=== PATIENT | female | born 1965 | race Caucasian/White ===

== ENCOUNTER 2021-09-10 14:16 | Inpatient (IN) | payer OTHER ==
[~2021-09-10] VITALS: Ht 162.6 cm; Wt 86.2 kg
[2021-09-10 14:17] VITALS: BP 142/69
[2021-09-10 14:20] VITALS: BP 142/69
--- NOTE | 2021-09-10 14:25 | NUR ---
ARRIVAL PATIENT ARRIVED TO ED6 VIA GURNEY BY [facility], C/O LEFT LEG PAIN AND REDNESS FOR THE PAST 2 DAYS, DOES HAVE A HISTORY OF DVT'S AND IS ON ELIQUIS, CALLED EMS TO BRING TO THE ED FOR EVAL, VITAL SIGNS OBTAINED AND DOCTOR EMRE TO THE ROOM TO SEE PATIENT.
--- NOTE | 2021-09-10 14:32 | ER.PDOC ---
General Chief Complaint: Extremities Stated Complaint: LEG PAIN Time seen by MD: 14:31 Source: patient Exam Limitations: no limitations History of Present Illness Initial Comments Left leg pain and swelling today. No fever or chills. Onset: this morning Severity: moderate Exacerbated By: walking movement Relieved By: nothing Allergies: Coded Allergies: No Known Allergies (Unverified , 10/14/14) Past Medical History Medical History: diabetes, hypertension Surgical History: appendectomy, coronary bypass surgery, knee, other Family History Significant Family History: no pertinent family hx Social History Smoking: non-smoker Alcohol Use: none Drug Use: none Review of Systems Constitutional: no symptoms reported EENTM: no symptoms reported Respiratory: no symptoms reported Cardiovascular: no symptoms reported Musculoskeletal: see HPI All Other Systems: Reviewed and Negative Physical Exam General Appearance: Alert, No Apparent Distress Lower Extremity: tenderness (left leg), swelling (left leg) Joint Exam: joints nml, nml ROM, nml gait/weight bearing Vascular: no vascular compromise, pulses full/equal Neuro/Psych: sensation nml, motor nml, oriented x3, CN's nml as tested, mood/a ffect nml Skin: warmth/erythema (left leg) Back/Neck: nml inspection EENT: eyes inspection nml, ENT inspection nml, pharynx nml Respiratory: no resp distress, breath sounds nml CVS: reg rate & rhythm, heart sounds nml Abdomen: non-tender, no organomegaly, no bruit/mass Results/Orders Results/Orders Orders - LA NENA ANDREA MD Cbc With Auto Diff (09/10/21 14:28) Comprehensive Metabolic Panel (09/10/21 14:28) PT (09/10/21 14:28) Partial Thromboplastin Time. (09/10/21 14:28) Blood Culture (09/10/21 14:28) Lactic Acid(Ml) (09/10/21 14:28) Procalcitonin (09/10/21 14:28) D-Dimer (09/10/21 14:28) Covid19 Antigen Linsey Agnieszka (09/10/21 14:38) Us Lt Vein U/L (09/10/21 14:28) Vital Signs Date Time Temp Pulse Resp B/P (MAP) Pulse Ox O2 Delivery O2 Flow Rate FiO2 09/10/21 16:16 98.7 77 18 169/65 (99) 91 Room Air 09/10/21 14:20 98.7 84 18 142/69 (93) 91 Room Air 09/10/21 14:17 98.7 84 18 91 09/10/21 14:17 98.7 84 18 09/10/21 14:17 98.7 84 18 142/69 (93) 91 Room Air Laboratory Tests Test 09/10/21 14:36 White Blood Count 11.9 10^3/uL (4.5-11.0) H Red Blood Count 3.42 10^6/uL (4.00-5.20) L Hemoglobin 9.8 g/dL (12.0-15.0) L Hematocrit 31.2 % (36.0-46.0) L Mean Corpuscular Volume 91.2 fL (78-100) Mean Corpuscular Hemoglobin 28.7 pg (26-34) Mean Corpuscular Hemoglobin Concent 31.4 g/dL (33-36.5) L Red Cell Distribution Width 13.5 % (11.5-14.5) Platelet Count 285 10^3/uL (150-400) Mean Platelet Volume 9.7 fL (7.8-11.0) Neutrophils (%) (Auto) 79.3 % (41.0-85.0) Lymphocytes (%) (Auto) 11.3 % (24.0-44.0) L Monocytes (%) (Auto) 8.6 % (5.0-12.0) Neutrophils # (Auto) 9.4 10^3/uL (1.8-7.7) H Lymphocytes # (Auto) 1.34 10^3/uL1 (1.0-4.8) Monocytes # (Auto) 1.0 10^3/uL (0.3-0.8) H Absolute Immature Granulocyte (auto 0.02 10^3 u/L (0-2) Absolute Eosinophils (auto) 0.0 10^3/uL (0.0-0.2) Immature Granulocytes % 0.20 % (0.00-0.50) Eosinophils % 0.3 % (0.0-5.0) Basophils % 0.3 % (0.0-0.2) H Basophils # 0.0 10^3/uL (0.0-0.1) Prothrombin Time 10.8 SEC (9.6-12.0) Prothrombin Time INR (Non-Therap) 1.0 Activated Partial Thromboplast Time 27.1 SEC (24.67-30.72) D-Dimer 1.43 mg/L (0.19-0.49) *H Sodium Level 134 mmol/L (132-145) Potassium Level 3.9 mmol/L (3.6-5.2) Chloride Level 98.0 mmol/L (96-109) Carbon Dioxide Level 27.4 mmol/L (20.0-32) Anion Gap 12.5 Blood Urea Nitrogen 38 mg/dL (7-18) H Creatinine 1.55 mg/dL (0.59-1.40) H Estimated GFR () 41.6 (>/=60) Est GFR (CKD-EPI)(Non-Afr Mexican) 34.3 (>/=60) BUN/Creatinine Ratio 24.0 Glucose Level 200 mg/dL (70-110) H Lactic Acid Level 1.6 mmol/L (0.5-1.9) Calcium Level 8.9 mg/dL (8.4-10.5) Total Bilirubin 0.4 mg/dL (0.2-1.0) Aspartate Amino Transferase (AST) 58 U/L (0-35) H Alanine Aminotransferase (ALT) 22 U/L (12-78) Alkaline Phosphatase 48 U/L (50-136) L Total Protein 7.7 g/dL (6.4-8.2) Albumin 2.9 g/dL (3.4-5.0) L Globulin 4.8 Albumin/Globulin Ratio 0.604 Procalcitonin 5.61 ng/mL (0.05-0.5) *H SARS-CoV-2 Antigen (Rapid) NEGATIVE (NEGATIVE) EKG/XRAY/CT/US Utrasound Comments: No DVT of LLE ER DEPART Departure Time of Disposition: 16:20 Disposition: 09 ADMITTED INPATIENT Impression: Primary Impression: Cellulitis of leg, left Condition: Stable Comments Admitted to Dr. Estevez Duration or Time Spent with Pa: 45 min LA NENA ANDREA MD Sep 10, 2021 14:32
--- NOTE | 2021-09-10 14:39 | NUR ---
ULTRASOUND BECK NOTIFIED AT THIS TIME.
[2021-09-10 14:45] LABS: BASOPHIL % 0.3 % (0.0-0.2); EOSINOPHIL % 0.3 % (0.0-5.0); LYMPHOCYTES # 1.34 10^3/uL1 (1.0-4.8); LYMPHOCYTES % 11.3 % (24.0-44.0); MEAN CORP HGB 28.7 pg (26-34); MONOCYTES % 8.6 % (5.0-12.0); NEUTROPHIL # 9.4 10^3/uL (1.8-7.7); NEUTROPHILS % 79.3 % (41.0-85.0); PLATELET COUNT 285 10^3/uL (150-400); RED CELL DISTRIBUTION WIDTH 13.5 % (11.5-14.5)
[2021-09-10 15:05] LABS: CALCIUM 8.9 mg/dL (8.4-10.5); CARBON DIOXIDE 27.4 mmol/L (20.0-32)
--- NOTE | 2021-09-10 15:14 | NUR ---
CRITICAL LAB D-DIMER 1.43, DOCTOR EMRE NOTIFIED.
--- NOTE | 2021-09-10 15:29 | DIREP ---
PROCEDURE:US DUPLEX EXTREM VEINS UNILATER/LIMITED-LT COMPARISON:None. INDICATIONS:pain TECHNIQUE:The left lower extremity was evaluated utilizing casillas scale images with segmental compression, color Doppler, and spectral Doppler with respiratory variation and augmentation. FINDINGS: Common femoral vein:Patent Superficial femoral vein:Patent Popliteal vein:Patent Posterior tibial vein:Patent Peroneal vein:Patent Greater saphenous vein:Patent suction femoral junction Waveforms: Within normal limits. CONCLUSION:No evidence of left lower extremity deep vein thrombosis. Dictated by: Carlos Eduardo Serrato M.D. on 09/10/2021 at 03:26 PM
--- NOTE | 2021-09-10 16:03 | NUR ---
DAMEON DOCTOR EMRE SPOKE WITH DOCTOR XIAO, WANTS PATIENT ADMITTED FOR OBSERVATION BY THE HOSPITALIST.
--- NOTE | 2021-09-10 16:12 | NUR ---
WADE DOCTOR EMRE ON THE PHONE WITH DOCTOR OLVERA AT THIS TIME DISCUSSING ADMISSION
[2021-09-10 16:16] VITALS: BP 169/65
[2021-09-10] MEDS ORDERED: ZOSYN 3.375 GM 3.375 GM in NS 100ML 100 ML IV STA (16:21)
[2021-09-10] MEDS ORDERED: VANCOMYCIN HCL 1 GM in NS 250ML 250 ML IV STA (16:21)
--- NOTE | 2021-09-10 16:30 | NUR ---
CRITICAL LAB PROCALCITONIN 5.61, DOCTOR EMRE NOTIFIED.
[2021-09-10] MEDS ORDERED: NS 100ML 100 ML IV ONE (16:31)
[2021-09-10] MEDS ORDERED: SITA100T PO (16:38)
[2021-09-10] MEDS ORDERED: CETI10TA18 PO (16:38)
[2021-09-10] MEDS ORDERED: LISI1TAB39 PO (16:38)
[2021-09-10] MEDS ORDERED: ROSU40TA PO (16:38)
[2021-09-10] MEDS ORDERED: APIX5TAB PO (16:38)
[2021-09-10] MEDS ORDERED: METF500T17 PO (16:38)
[2021-09-10] MEDS ORDERED: TRAZ-163 PO (16:38)
[2021-09-10] MEDS ORDERED: POTA10CA PO (16:38)
[2021-09-10] MEDS ORDERED: FAMO20TA5 PO (16:38)
[2021-09-10] MEDS ORDERED: FURO40TA4 PO (16:38)
[2021-09-10] MEDS ORDERED: LAMO25TA9 PO (16:38)
[2021-09-10] MEDS ORDERED: SERT50TA PO (16:38)
[2021-09-10] MEDS ORDERED: INSU100I13 SQ (16:41)
[2021-09-10] MEDS ORDERED: INSU100V SQ (16:41)
--- NOTE | 2021-09-10 17:08 | NUR ---
ARRIVAL PATIENT ARRIVED TO MED-SURG UNIT AT THIS TIME TO ROOM #340. RECEIVED REPORT, ASSUMED CARE FOR PATIENT AT THIS TIME.
[2021-09-10] MEDS ORDERED: VANCOMYCIN HCL 1 GM ONE (17:46)
[2021-09-10] MEDS ORDERED: NS 250ML 250 ML ONE ×2 (17:46→21:06)
--- NOTE | 2021-09-10 19:44 | PCM.HP ---
History of Present Illness Reason for Visit: (1) Cellulitis of leg, left ICD Code: L03.116 - Cellulitis of left lower limb SNOMED: [id number] Hx of Present Illness This is a 56-year-old female with a past medical history of hypertension, insulin-dependent diabetes, depression, HLD, DVT in left leg, CAD who presented to the emergency room today with swelling and redness of left lower extremity. She reported the symptoms started 48 hours ago. Symptoms associated with warmth. She did report that her cat at home scratched her around the same time of onset of symptoms but that the cat scratch was in the thigh area not in the calf. She does have a history of a filter in that leg after having a blood clot in that leg in several years ago. She denied any chest pain or shortness of breath. She had a negative ultrasound of that leg with no DVT noted. Her WBC was slightly elevated at 11.9. Her D-dimer was elevated at 1.43. Her pro-Thaddeus was elevated at 5.61. Creatinine slightly elevated at 1.55. SARS-CoV Ag negative. The emergency room physician requested to admit the patient for IV antibiotics for cellulitis. She was started on Vanco and Zosyn. Review of Systems Constitutional: No: Fever, Chills Eyes: No: Vision change, Conjunctivae inflammation ENT: No: Ear pain, Nose congestion Respiratory: No: Cough, Shortness of breath, SOB with excertion, Wheezing Cardiovascular: No: Chest Pain, Palpitations Gastrointestinal: No: Nausea, Vomiting, Abdominal Pain, Diarrhea Genitourinary: No Dysuria, No Frequency Skin: Other (redness, warmth, swelling to left calf) Neurological: No: Weakness, Numbness, Confusion Allergies: Coded Allergies: No Known Allergies (Unverified , 10/14/14) Scheduled Apixaban (Eliquis), 5 MG PO BID, (Reported) Cetirizine Hcl (Cetirizine Hcl), 1 TAB PO DAILY, (Reported) Famotidine (Famotidine), 20 MG PO DAILY24, (Reported) Furosemide (Furosemide), 1 TAB PO DAILY, (Reported) Insulin Glargine,Hum.rec.anlog (Lantus Solostar), 18 UNIT SQ BID, (Reported) Insulin Lispro (Humalog), 0 SQ PER SLIDING SCALE, (Reported) Lamotrigine (Lamotrigine), 1 TAB PO DAILY, (Reported) Lisinopril/Hydrochlorothiazide (Lisinopril-Hctz 20-12.5 Mg Tab), 1 TAB PO DAILY, (Reported) Metformin Hcl (Metformin Hcl), 1 TAB PO BID, (Reported) Potassium Chloride (Potassium Chloride), 1 CAP PO DAILY, (Reported) Rosuvastatin 40MG (Crestor 40MG), 1 TAB PO DAILY, (Reported) Sertraline Hcl (Zoloft), 1 TAB PO DAILY, (Reported) Sitagliptin Phosphate (Januvia), 1 TAB PO DAILY, (Reported) Trazodone Hcl (Trazodone Hcl), 1 TAB PO HS, (Reported) VTE VTE Risk Total Score: 1 VTE Risk Score VTE Risk: Score 0-1 = Low Risk (Aggressive mobilization; early ambulation; no VTE prophylaxis required) Score 2: Moderate Risk (Intermittent/Pneumatic Compression Device OR Lovenox/Heparin/Coumadin) Score 3-4: High Risk (Intermittent/Pneumatic Compression Device AND Lovenox/Heparin/Coumadin) Score > or =5: Highest Risk (Intermittent/Pneumatic Compression Device AND Lovenox/Heparin/Coumadin) VTE Treatment Taking Eliquis 5mg PO BID VTE VTE Present on Admission: Yes Currently receiving anticoagul: No VTE Risk Total Score: 1 Exam Vital Signs Vital Signs Date Time Temp Pulse Resp B/P (MAP) Pulse Ox O2 Delivery O2 Flow Rate FiO2 09/10/21 18:16 Room Air 09/10/21 16:16 98.7 77 18 169/65 (99) 91 General Appearance: Alert, Oriented X3, Cooperative, No acute distress HEENT: Atraumatic, PERRLA, EOMI Respiratory: Clear to auscultation, Normal air movement Cardiovascular: Regular rate, No murmurs Abdominal: Normal bowel sounds, Soft, No tenderness Extremities: Other (Mild swelling to left lower calf with mild tenderness.) Skin: Other (warmth and mild redness to left lower calf, no ulcers. ) Neuro: Normal speech (This is a 56-year-old female with a past medical history of hypertension, insulin-dependent diabetes, depression, HLD, DVT in left leg, CAD who presented to the emergency room today with swelling and redness of left lower extremity. She reported the symptoms started 48 hours ago. Symptoms associated with warmth. She did report that her cat at home scratched her around the same time of onset of symptoms but that the cat scratch was in the thigh area not in the calf. She does have a history of a filter in that leg after having a blood clot in that leg in several years ago. She denied any chest pain or shortness of breath.), Sensation intact Psych/Mental Status: Mental status NL, Mood NL Assessment/Plan Assessment/Plan Assessment/Plan Left lower extremity cellulitiscontinue Vanco and Zosyn at this time. If further improved tomorrow we will likely switch over to oral antibiotics. Previous history of DVTfilter in place of left lower extremity and ultrasound was negative for DVT in that extremity. Continue Eliquis. Insulin-dependent diabetescontinue Lantus dose from home of 18 units twice daily and sliding scale. Hypertensioncontinue lisinopril/hydrochlorothiazide. Hyperlipidemiacontinue rosuvastatin. Depressioncontinued Zoloft. Continue home medications at this time. If able to switch IV Vanco and Zosyn to oral medications tomorrow may be able to discharge patient in 24 to 48 hours. Patient History: Cerebrovascular disorder Diabetes mellitus Hypertension No Family History of: Alzheimer's disease Asthma Chronic obstructive pulmonary disease Congestive heart failure Diabetes insipidus Parkinson's disease PRABHJOT OLVERA MD Sep 10, 2021 19:44
[2021-09-10 19:47] VITALS: BP_SYST 125; BP_SYST 150; BP_DIAS 54; BP_DIAS 78
[2021-09-10] MEDS ORDERED: DEXTROSE 50%-WATER SYRINGE IV PRN (20:00)
[2021-09-10] MEDS ORDERED: MORPHINE SULFATE IV PRN (21:00)
[2021-09-10] MEDS: DESYREL PO SCH (21:16)
[2021-09-10] MEDS: PEPCID PO SCH (21:16)
[2021-09-10] MEDS: ELIQUIS PO SCH (21:17)
[2021-09-10] MEDS: LANTUS SQ SCH (21:40)
[2021-09-11 00:18] VITALS: BP 101/47
[2021-09-11] MEDS ORDERED: NS 100ML 100 ML IV ONE (03:58)
[2021-09-11] MEDS: ZOSYN 3.375 GM 3.375 GM in NS 100ML 100 ML IV SCH ×2 (04:00→09:23)
[2021-09-11 04:26] VITALS: BP 138/57
[2021-09-11 05:44] LABS: BASOPHIL % 0.4 % (0.0-0.2); EOSINOPHIL # 0.2 10^3/uL (0.0-0.2); EOSINOPHIL % 1.7 % (0.0-5.0); LYMPHOCYTES # 1.68 10^3/uL1 (1.0-4.8); MEAN CORP HGB 29.3 pg (26-34); MONOCYTES # 1.1 10^3/uL (0.3-0.8); MONOCYTES % 10.1 % (5.0-12.0); NEUTROPHIL # 7.6 10^3/uL (1.8-7.7); NEUTROPHILS % 71.8 % (41.0-85.0); PLATELET COUNT 260 10^3/uL (150-400); RED CELL DISTRIBUTION WIDTH 13.7 % (11.5-14.5)
[2021-09-11 05:49] LABS: CALCIUM 8.5 mg/dL (8.4-10.5); CARBON DIOXIDE 27.6 mmol/L (20.0-32)
[2021-09-11] MEDS: HUMALOG SQ SCH ×3 (08:00→18:12)
[2021-09-11 08:23] VITALS: BP 101/49
[2021-09-11] MEDS: LANTUS SQ SCH ×2 (09:18→21:00)
[2021-09-11] MEDS: CRESTOR PO SCH (09:19)
[2021-09-11] MEDS: CLARITIN PO SCH (09:19)
[2021-09-11] MEDS: ZOLOFT PO SCH (09:20)
[2021-09-11] MEDS: KLOR-CON 10 PO SCH (09:20)
[2021-09-11] MEDS: ZESTRIL PO SCH (09:20)
[2021-09-11] MEDS: LAMICTAL PO SCH (09:20)
[2021-09-11] MEDS: TRADJENTA PO SCH (09:20)
[2021-09-11] MEDS: ELIQUIS PO SCH ×2 (09:20→20:38)
[2021-09-11] MEDS: LASIX PO SCH (09:23)
[2021-09-11] MEDS: HYDROCHLOROTHIAZIDE PO SCH (09:23)
[2021-09-11] MEDS ORDERED: TYLENOL PO PRN (12:00)
[2021-09-11] MEDS: CLEOCIN PO SCH ×3 (13:00→20:39)
[2021-09-11 13:38] VITALS: BP 119/56
[2021-09-11 15:42] VITALS: BP 119/56
--- NOTE | 2021-09-11 19:21 | PRM.PN ---
Subjective Subjective Date: Sep 11, 2021 Time: 11:00 Subjective Pt seen and examined this morning. She had no new complaints. She believes the swelling, pain and warmth in the leg are improved. Afebrile overnight. Patient History: Cerebrovascular disorder Diabetes mellitus Hypertension No Family History of: Alzheimer's disease Asthma Chronic obstructive pulmonary disease Congestive heart failure Diabetes insipidus Parkinson's disease VTE VTE Risk Total Score: 1 VTE Risk Score VTE Risk: Score 0-1 = Low Risk (Aggressive mobilization; early ambulation; no VTE prophylaxis required) Score 2: Moderate Risk (Intermittent/Pneumatic Compression Device OR Lovenox/Heparin/Coumadin) Score 3-4: High Risk (Intermittent/Pneumatic Compression Device AND Lovenox/Heparin/Coumadin) Score > or =5: Highest Risk (Intermittent/Pneumatic Compression Device AND Lovenox/Heparin/Coumadin) Review of Systems Constitutional: No: Fever, Chills Eyes: No: Vision change, Conjunctivae inflammation ENT: No: Ear pain, Nose congestion Respiratory: No: Cough, Shortness of breath, SOB with excertion, Wheezing Cardiovascular: No: Chest Pain, Palpitations Gastrointestinal: No: Nausea, Vomiting, Abdominal Pain, Diarrhea Genitourinary: No Dysuria, No Frequency Skin: Other (redness, warmth, swelling to left calf) Neurological: No: Weakness, Numbness, Confusion Allergies: Coded Allergies: No Known Allergies (Unverified , 10/14/14) Scheduled Apixaban (Eliquis), 5 MG PO BID, (Reported) Cetirizine Hcl (Cetirizine Hcl), 1 TAB PO DAILY, (Reported) Famotidine (Famotidine), 20 MG PO DAILY24, (Reported) Furosemide (Furosemide), 1 TAB PO DAILY, (Reported) Insulin Glargine,Hum.rec.anlog (Lantus Solostar), 18 UNIT SQ BID, (Reported) Insulin Lispro (Humalog), 0 SQ PER SLIDING SCALE, (Reported) Lamotrigine (Lamotrigine), 1 TAB PO DAILY, (Reported) Lisinopril/Hydrochlorothiazide (Lisinopril-Hctz 20-12.5 Mg Tab), 1 TAB PO DAILY, (Reported) Metformin Hcl (Metformin Hcl), 1 TAB PO BID, (Reported) Potassium Chloride (Potassium Chloride), 1 CAP PO DAILY, (Reported) Rosuvastatin 40MG (Crestor 40MG), 1 TAB PO DAILY, (Reported) Sertraline Hcl (Zoloft), 1 TAB PO DAILY, (Reported) Sitagliptin Phosphate (Januvia), 1 TAB PO DAILY, (Reported) Trazodone Hcl (Trazodone Hcl), 1 TAB PO HS, (Reported) Objective Vitals and I/O Vital Sign - Last 24 Hours 09/10/21 09/11/21 09/11/21 09/11/21 19:47 00:18 03:56 04:26 Temp 98.7 98.5 100.7 Pulse 76 81 85 Resp 18 18 18 B/P (MAP) 125/54 (77) 101/47 (65) 138/57 (84) Pulse Ox 98 91 97 O2 Delivery Room Air Room Air Room Air Room Air 09/11/21 09/11/21 09/11/21 09/11/21 08:23 09:20 09:23 09:23 Temp 99.9 Pulse 75 Resp 18 B/P (MAP) 101/49 (66) 101/49 101/49 101/49 Pulse Ox 93 09/11/21 09/11/21 09/11/21 10:00 13:38 15:42 Temp 98.2 98.5 Pulse 63 67 Resp 17 18 B/P (MAP) 119/56 (77) 119/56 (77) Pulse Ox 93 94 O2 Delivery Room Air General: Alert, Oriented X3, Cooperative, No acute distress HEENT: Atraumatic, PERRLA, EOMI Lungs: Clear to auscultation, Normal air movement Heart: Regular rate, No murmurs Abdomen: Normal bowel sounds, Soft, No tenderness Extremities: Other (Mild swelling to left lower calf with mild tenderness but improved from yesterday. Mild erythema to posterior and lower lateral calf. no open wound, no abscess appreciated.) Neuro: Normal speech, Sensation intact Psych/Mental Status: Mental status NL, Mood NL All Results(Lab/Rad) Laboratory Tests Test 09/10/21 20:46 09/11/21 05:17 09/11/21 12:41 09/11/21 16:39 Bedside Glucose 215 204 178 White Blood Count 10.5 10^3/uL Red Blood Count 3.00 10^6/uL Hemoglobin 8.8 g/dL Hematocrit 27.7 % Mean Corpuscular Volume 92.3 fL Mean Corpuscular Hemoglobin 29.3 pg Mean Corpuscular Hemoglobin Concent 31.8 g/dL Red Cell Distribution Width 13.7 % Platelet Count 260 10^3/uL Mean Platelet Volume 9.6 fL Neutrophils (%) (Auto) 71.8 % Lymphocytes (%) (Auto) 16.0 % Monocytes (%) (Auto) 10.1 % Neutrophils # (Auto) 7.6 10^3/uL Lymphocytes # (Auto) 1.68 10^3/uL1 Monocytes # (Auto) 1.1 10^3/uL Absolute Immature Granulocyte (auto 0.01 10^3 u/L Absolute Eosinophils (auto) 0.2 10^3/uL Immature Granulocytes % 0.10 % Eosinophils % 1.7 % Basophils % 0.4 % Basophils # 0.0 10^3/uL Sodium Level 136 mmol/L Potassium Level 4.0 mmol/L Chloride Level 101.0 mmol/L Carbon Dioxide Level 27.6 mmol/L Anion Gap 11.4 Blood Urea Nitrogen 39 mg/dL Creatinine 1.91 mg/dL Estimated GFR () 32.7 Est GFR (CKD-EPI)(Non-Afr Libyan) 27.0 BUN/Creatinine Ratio 20.0 Glucose Level 185 mg/dL Calcium Level 8.5 mg/dL Total Bilirubin 0.3 mg/dL Aspartate Amino Transf (AST/SGOT) 43 U/L Alanine Aminotransferase (ALT/SGPT) 22 U/L Alkaline Phosphatase 54 U/L Total Protein 6.9 g/dL Albumin 2.5 g/dL Globulin 4.4 Albumin/Globulin Ratio 0.568 Current Medications Medications (Trade) Dose Ordered Sig/Orlin Route PRN Reason Start Time Stop Time Status Last Admin Dose Admin Vancomycin HCl 1 gm/Sodium Chloride 250 ml @ 175 mls/hr STAT STAT IV 09/10/21 16:21 09/10/21 17:46 DC 09/10/21 21:00 Piperacillin Sod/ Tazobactam Sod 3.375 gm/Sodium Chloride 100 ml @ 100 mls/hr OT STAT IV 09/10/21 16:21 09/10/21 17:20 DC 09/10/21 16:48 Sodium Chloride 100 ml @ ud STK-MED ONCE IV 09/10/21 16:31 09/10/21 16:32 DC Vancomycin HCl 1 ml @ STK-MED ONCE .ROUTE 09/10/21 17:46 09/10/21 17:46 [facility] 09/10/21 17:46 09/10/21 17:46 DC Loratadine (Claritin) 10 mg DAILY PO 09/11/21 09:00 10/11/21 08:59 09/11/21 09:19 Famotidine (Pepcid) 20 mg DAILY24 PO 09/10/21 20:00 10/10/21 19:59 09/10/21 21:16 Furosemide (Lasix) 40 mg DAILY PO 09/11/21 09:00 10/11/21 08:59 09/11/21 09:23 Lamotrigine (Lamictal) 25 mg DAILY PO 09/11/21 09:00 10/11/21 08:59 09/11/21 09:20 Sertraline HCl (Zoloft) 50 mg DAILY PO 09/11/21 09:00 10/11/21 08:59 09/11/21 09:20 Trazodone HCl (Desyrel) 50 mg HS PO 09/10/21 21:00 10/10/21 20:59 09/10/21 21:16 Insulin Glargine (Lantus) 18 unit BID SQ 09/10/21 21:00 10/10/21 20:59 09/11/21 09:18 Lisinopril (Zestril) 20 mg DAILY PO 09/11/21 09:00 10/11/21 08:59 09/11/21 09:20 Potassium Chloride (Klor-Con 10) 10 meq DAILY PO 09/11/21 09:00 10/11/21 08:59 09/11/21 09:20 Rosuvastatin Calcium (Crestor) 40 mg DAILY PO 09/11/21 09:00 10/11/21 08:59 09/11/21 09:19 Insulin Human Lispro (Humalog) Humalog. Give when food is... TIDM SQ 09/11/21 08:00 10/11/21 07:59 09/11/21 18:12 Dextrose (Dextrose 50%-Water Syringe) 25 ml STAT PRN IV HYPOGLYCEMIA 09/10/21 20:00 10/10/21 19:59 Hydrochlorothiazide (Hydrochlorothiazide) 12.5 mg DAILY PO 09/11/21 09:00 10/11/21 08:59 09/11/21 09:23 Morphine Sulfate (Morphine Sulfate) 2 mg Q4H PRN IV PAIN 4 - 6 09/10/21 21:00 09/11/21 12:00 DC 09/10/21 21:18 Piperacillin Sod/ Tazobactam Sod 3.375 gm/Sodium Chloride 100 ml @ 100 mls/hr Q6H IV 09/11/21 04:00 09/11/21 12:22 DC 09/11/21 09:23 Sodium Chloride 250 ml @ STK-MED ONCE .ROUTE 09/10/21 21:06 09/10/21 21:07 DC Sodium Chloride 100 ml @ STK-MED ONCE IV 09/11/21 03:58 09/11/21 03:59 DC Clindamycin HCl (Cleocin) 300 mg QID PO 09/11/21 13:00 10/11/21 12:59 09/11/21 17:59 Acetaminophen (Tylenol) 500 mg Q6H PRN PO PAIN 1 - 3 09/11/21 12:00 10/11/21 11:59 Course Sepsis Screening Results: Posi: NEGATIVE Sepsis Qualifier/Stage: NO DEFINITE RISK Duration or Total Time Spent w: 45 min Vitals & review Data Vital Sign - Last 24 Hours 09/10/21 09/11/21 09/11/21 09/11/21 19:47 00:18 03:56 04:26 Temp 98.7 98.5 100.7 Pulse 76 81 85 Resp 18 18 18 B/P (MAP) 125/54 (77) 101/47 (65) 138/57 (84) Pulse Ox 98 91 97 O2 Delivery Room Air Room Air Room Air Room Air 09/11/21 09/11/21 09/11/21 09/11/21 08:23 09:20 09:23 09:23 Temp 99.9 Pulse 75 Resp 18 B/P (MAP) 101/49 (66) 101/49 101/49 101/49 Pulse Ox 93 09/11/21 09/11/21 09/11/21 10:00 13:38 15:42 Temp 98.2 98.5 Pulse 63 67 Resp 17 18 B/P (MAP) 119/56 (77) 119/56 (77) Pulse Ox 93 94 O2 Delivery Room Air Laboratory Tests Test 09/10/21 14:36 09/10/21 20:46 09/11/21 05:17 09/11/21 12:41 White Blood Count 11.9 10^3/uL 10.5 10^3/uL Red Blood Count 3.42 10^6/uL 3.00 10^6/uL Hemoglobin 9.8 g/dL 8.8 g/dL Hematocrit 31.2 % 27.7 % Mean Corpuscular Volume 91.2 fL 92.3 fL Mean Corpuscular Hemoglobin 28.7 pg 29.3 pg Mean Corpuscular Hemoglobin Concent 31.4 g/dL 31.8 g/dL Red Cell Distribution Width 13.5 % 13.7 % Platelet Count 285 10^3/uL 260 10^3/uL Mean Platelet Volume 9.7 fL 9.6 fL Neutrophils (%) (Auto) 79.3 % 71.8 % Lymphocytes (%) (Auto) 11.3 % 16.0 % Monocytes (%) (Auto) 8.6 % 10.1 % Neutrophils # (Auto) 9.4 10^3/uL 7.6 10^3/uL Lymphocytes # (Auto) 1.34 10^3/uL1 1.68 10^3/uL1 Monocytes # (Auto) 1.0 10^3/uL 1.1 10^3/uL Absolute Immature Granulocyte (auto 0.02 10^3 u/L 0.01 10^3 u/L Absolute Eosinophils (auto) 0.0 10^3/uL 0.2 10^3/uL Immature Granulocytes % 0.20 % 0.10 % Eosinophils % 0.3 % 1.7 % Basophils % 0.3 % 0.4 % Basophils # 0.0 10^3/uL 0.0 10^3/uL Prothrombin Time 10.8 SEC Prothrombin Time INR (Non-Therap) 1.0 Activated Partial Thromboplast Time 27.1 SEC D-Dimer 1.43 mg/L Sodium Level 134 mmol/L 136 mmol/L Potassium Level 3.9 mmol/L 4.0 mmol/L Chloride Level 98.0 mmol/L 101.0 mmol/L Carbon Dioxide Level 27.4 mmol/L 27.6 mmol/L Anion Gap 12.5 11.4 Blood Urea Nitrogen 38 mg/dL 39 mg/dL Creatinine 1.55 mg/dL 1.91 mg/dL Estimated GFR () 41.6 32.7 Est GFR (CKD-EPI)(Non-Afr Libyan) 34.3 27.0 BUN/Creatinine Ratio 24.0 20.0 Glucose Level 200 mg/dL 185 mg/dL Lactic Acid Level 1.6 mmol/L Calcium Level 8.9 mg/dL 8.5 mg/dL Total Bilirubin 0.4 mg/dL 0.3 mg/dL Aspartate Amino Transf (AST/SGOT) 58 U/L 43 U/L Alanine Aminotransferase (ALT/SGPT) 22 U/L 22 U/L Alkaline Phosphatase 48 U/L 54 U/L Total Protein 7.7 g/dL 6.9 g/dL Albumin 2.9 g/dL 2.5 g/dL Globulin 4.8 4.4 Albumin/Globulin Ratio 0.604 0.568 Procalcitonin 5.61 ng/mL SARS-CoV-2 Antigen (Rapid) NEGATIVE Bedside Glucose 215 204 Test 09/11/21 16:39 Bedside Glucose 178 Current Medications Medications (Trade) Dose Ordered Sig/Orlin PRN Reason Start Time Stop Time Status Last Admin Acetaminophen (Tylenol) 500 mg Q6H PRN PAIN 1 - 3 09/11/21 12:00 10/11/21 11:59 Clindamycin HCl (Cleocin) 300 mg QID 09/11/21 13:00 10/11/21 12:59 09/11/21 17:59 Dextrose (Dextrose 50%-Water Syringe) 25 ml STAT PRN HYPOGLYCEMIA 09/10/21 20:00 10/10/21 19:59 Famotidine (Pepcid) 20 mg DAILY24 09/10/21 20:00 10/10/21 19:59 09/10/21 21:16 Furosemide (Lasix) 40 mg DAILY 09/11/21 09:00 10/11/21 08:59 09/11/21 09:23 Hydrochlorothiazide (Hydrochlorothiazide) 12.5 mg DAILY 09/11/21 09:00 10/11/21 08:59 09/11/21 09:23 Insulin Glargine (Lantus) 18 unit BID 09/10/21 21:00 10/10/21 20:59 09/11/21 09:18 Insulin Human Lispro (Humalog) Humalog. Give when food is... TIDM 09/11/21 08:00 10/11/21 07:59 09/11/21 18:12 Lamotrigine (Lamictal) 25 mg DAILY 09/11/21 09:00 10/11/21 08:59 09/11/21 09:20 Lisinopril (Zestril) 20 mg DAILY 09/11/21 09:00 10/11/21 08:59 09/11/21 09:20 Loratadine (Claritin) 10 mg DAILY 09/11/21 09:00 10/11/21 08:59 09/11/21 09:19 Potassium Chloride (Klor-Con 10) 10 meq DAILY 09/11/21 09:00 10/11/21 08:59 09/11/21 09:20 Rosuvastatin Calcium (Crestor) 40 mg DAILY 09/11/21 09:00 10/11/21 08:59 09/11/21 09:19 Sertraline HCl (Zoloft) 50 mg DAILY 09/11/21 09:00 10/11/21 08:59 09/11/21 09:20 Trazodone HCl (Desyrel) 50 mg HS 09/10/21 21:00 10/10/21 20:59 09/10/21 21:16 LEVEL 1 SEPSIS INFECTION CRITE: None/Not assessed LEVEL 2-SIRS (LIST ALL THAT AP: None/Not assessed Cardiovascular Evidence: Not Assessed or None Hematologic Evidence: None/Not assessed Hepatic Evidence: None/Not assessed Metabolic Evidence: None/Not assessed Neurological Evidence: None/Not assessed Respiratory Evidence: None/Not assessed Renal Evidence: None/Not assessed O2 Sat by Pulse Oximetry: 94 Assessment/Plan Assessment/Plan Assessment/Plan Left lower extremity cellulitis - Received Vanc and Zosyn but have de-escalated to clindamycin at this time and expect cellulitis to further improve. Previous history of DVTf ilter in place of left lower extremity and ultrasound was negative for DVT in that extremity. Continue Eliquis. Insulin-dependent diabetes continue Lantus dose from home of 18 units twice daily and sliding scale. Hypertension continue lisinopril/hydrochlorothiazide. Hyperlipidemia continue rosuvastatin. Depression continued Zoloft. If cellulitis continues to improve after starting PO clindamycin today - likely ready for d/c to home on 09/12/21. PRABHJOT OLVERA MD Sep 11, 2021 19:21
[2021-09-11] MEDS: DESYREL PO SCH (20:38)
[2021-09-11] MEDS: PEPCID PO SCH (20:39)
[2021-09-11 20:42] VITALS: BP 137/64
[2021-09-12 02:13] VITALS: BP 108/71
[2021-09-12 05:00] LABS: BASOPHIL # 0.1 10^3/uL (0.0-0.1); BASOPHIL % 0.5 % (0.0-0.2); EOSINOPHIL # 0.2 10^3/uL (0.0-0.2); EOSINOPHIL % 2.2 % (0.0-5.0); LYMPHOCYTES # 2.18 10^3/uL1 (1.0-4.8); LYMPHOCYTES % 22.9 % (24.0-44.0); MEAN CORP HGB 29.1 pg (26-34); MONOCYTES % 10.5 % (5.0-12.0); NEUTROPHIL # 6.1 10^3/uL (1.8-7.7); NEUTROPHILS % 63.9 % (41.0-85.0); PLATELET COUNT 310 10^3/uL (150-400); RED CELL DISTRIBUTION WIDTH 13.6 % (11.5-14.5)
[2021-09-12 05:14] VITALS: BP 136/67
[2021-09-12 08:15] VITALS: BP 128/56
[2021-09-12] MEDS: HUMALOG SQ SCH ×3 (08:29→17:15)
[2021-09-12] MEDS: LANTUS SQ SCH ×2 (08:30→21:00)
[2021-09-12] MEDS: CLARITIN PO SCH (09:50)
[2021-09-12] MEDS: CRESTOR PO SCH (09:50)
[2021-09-12] MEDS: HYDROCHLOROTHIAZIDE PO SCH (09:50)
[2021-09-12] MEDS: CLEOCIN PO SCH ×4 (09:50→21:04)
[2021-09-12] MEDS: KLOR-CON 10 PO SCH (09:50)
[2021-09-12] MEDS: TRADJENTA PO SCH (09:50)
[2021-09-12] MEDS: LAMICTAL PO SCH (09:50)
[2021-09-12] MEDS: LASIX PO SCH (09:50)
[2021-09-12] MEDS: ZOLOFT PO SCH (09:50)
[2021-09-12] MEDS: ZESTRIL PO SCH (09:50)
[2021-09-12] MEDS: ELIQUIS PO SCH ×2 (09:50→21:04)
--- NOTE | 2021-09-12 12:34 | PRM.PN ---
Subjective Subjective Date: Sep 12, 2021 Time: 09:00 Subjective Patient had a fever this morning, temperature 100.5. Also her creatinine went up to 2.1. Baseline 1.5. Vancomycin and Zosyn were discontinued and patient currently on clindamycin. Otherwise she is feeling okay.Blood cultures negative to date. Patient History: Cerebrovascular disorder Diabetes mellitus Hypertension No Family History of: Alzheimer's disease Asthma Chronic obstructive pulmonary disease Congestive heart failure Diabetes insipidus Parkinson's disease Review of Systems Constitutional: Fever; No: Chills Eyes: No: Vision change, Conjunctivae inflammation ENT: No: Ear pain, Nose congestion Respiratory: No: Cough, Shortness of breath, SOB with excertion, Wheezing Cardiovascular: No: Chest Pain, Palpitations Gastrointestinal: No: Nausea, Vomiting, Abdominal Pain, Diarrhea Genitourinary: No Dysuria, No Frequency Musculoskeletal: foot pain Skin: Other (redness, warmth, swelling to left calf) Neurological: No: Weakness, Numbness, Confusion Allergies: Coded Allergies: No Known Allergies (Unverified , 10/14/14) Scheduled Apixaban (Eliquis), 5 MG PO BID, (Reported) Cetirizine Hcl (Cetirizine Hcl), 1 TAB PO DAILY, (Reported) Famotidine (Famotidine), 20 MG PO DAILY24, (Reported) Furosemide (Furosemide), 1 TAB PO DAILY, (Reported) Insulin Glargine,Hum.rec.anlog (Lantus Solostar), 18 UNIT SQ BID, (Reported) Insulin Lispro (Humalog), 0 SQ PER SLIDING SCALE, (Reported) Lamotrigine (Lamotrigine), 1 TAB PO DAILY, (Reported) Lisinopril/Hydrochlorothiazide (Lisinopril-Hctz 20-12.5 Mg Tab), 1 TAB PO DAILY, (Reported) Metformin Hcl (Metformin Hcl), 1 TAB PO BID, (Reported) Potassium Chloride (Potassium Chloride), 1 CAP PO DAILY, (Reported) Rosuvastatin 40MG (Crestor 40MG), 1 TAB PO DAILY, (Reported) Sertraline Hcl (Zoloft), 1 TAB PO DAILY, (Reported) Sitagliptin Phosphate (Januvia), 1 TAB PO DAILY, (Reported) Trazodone Hcl (Trazodone Hcl), 1 TAB PO HS, (Reported) Objective Vitals and I/O Vital Sign - Last 24 Hours 09/11/21 09/11/21 09/11/21 09/12/21 13:38 15:42 20:42 02:13 Temp 98.2 98.5 98.2 98.5 Pulse 63 67 84 83 Resp 17 18 19 17 B/P (MAP) 119/56 (77) 119/56 (77) 137/64 (88) 108/71 (83) Pulse Ox 93 94 96 93 O2 Delivery Room Air Room Air 09/12/21 09/12/21 09/12/21 09/12/21 02:40 05:14 06:58 09:50 Temp 100.5 Pulse 88 Resp 18 B/P (MAP) 136/67 (90) 128/56 Pulse Ox 96 O2 Delivery Room Air Room Air Room Air 09/12/21 09/12/21 09:50 09:50 B/P (MAP) 128/56 128/56 Intake and Output 09/12/21 07:00 Intake Total 638 ml Balance 638 ml General: Alert, Oriented X3, Cooperative, No acute distress HEENT: Atraumatic, PERRLA, EOMI Lungs: Clear to auscultation, Normal air movement Heart: Regular rate, No murmurs Abdomen: Normal bowel sounds, Soft, No tenderness Extremities: Other (Erythema swelling left leg. Mild erythema to posterior and lower lateral calf. no open wound, no abscess appreciated.) Skin: Other (Redness left leg) Neuro: Normal speech, Sensation intact Psych/Mental Status: Mental status NL, Mood NL All Results(Lab/Rad) Laboratory Tests Test 09/10/21 20:46 09/11/21 05:17 09/11/21 12:41 09/11/21 16:39 Bedside Glucose 215 204 178 White Blood Count 10.5 10^3/uL Red Blood Count 3.00 10^6/uL Hemoglobin 8.8 g/dL Hematocrit 27.7 % Mean Corpuscular Volume 92.3 fL Mean Corpuscular Hemoglobin 29.3 pg Mean Corpuscular Hemoglobin Concent 31.8 g/dL Red Cell Distribution Width 13.7 % Platelet Count 260 10^3/uL Mean Platelet Volume 9.6 fL Neutrophils (%) (Auto) 71.8 % Lymphocytes (%) (Auto) 16.0 % Monocytes (%) (Auto) 10.1 % Neutrophils # (Auto) 7.6 10^3/uL Lymphocytes # (Auto) 1.68 10^3/uL1 Monocytes # (Auto) 1.1 10^3/uL Absolute Immature Granulocyte (auto 0.01 10^3 u/L Absolute Eosinophils (auto) 0.2 10^3/uL Immature Granulocytes % 0.10 % Eosinophils % 1.7 % Basophils % 0.4 % Basophils # 0.0 10^3/uL Sodium Level 136 mmol/L Potassium Level 4.0 mmol/L Chloride Level 101.0 mmol/L Carbon Dioxide Level 27.6 mmol/L Anion Gap 11.4 Blood Urea Nitrogen 39 mg/dL Creatinine 1.91 mg/dL Estimated GFR () 32.7 Est GFR (CKD-EPI)(Non-Afr [place]ian) 27.0 BUN/Creatinine Ratio 20.0 Glucose Level 185 mg/dL Calcium Level 8.5 mg/dL Total Bilirubin 0.3 mg/dL Aspartate Amino Transf (AST/SGOT) 43 U/L Alanine Aminotransferase (ALT/SGPT) 22 U/L Alkaline Phosphatase 54 U/L Total Protein 6.9 g/dL Albumin 2.5 g/dL Globulin 4.4 Albumin/Globulin Ratio 0.568 Current Medications Medications (Trade) Dose Ordered Sig/Orlin Route PRN Reason Start Time Stop Time Status Last Admin Dose Admin Vancomycin HCl 1 gm/Sodium Chloride 250 ml @ 175 mls/hr STAT STAT IV 09/10/21 16:21 09/10/21 17:46 DC 09/10/21 21:00 Piperacillin Sod/ Tazobactam Sod 3.375 gm/Sodium Chloride 100 ml @ 100 mls/hr OT STAT IV 09/10/21 16:21 09/10/21 17:20 DC 09/10/21 16:48 Sodium Chloride 100 ml @ ud STK-MED ONCE IV 09/10/21 16:31 09/10/21 16:32 DC Vancomycin HCl 1 ml @ ud STK-MED ONCE .ROUTE 09/10/21 17:46 09/10/21 17:46 DC Sodium Chloride 250 ml @ ud STK-MED ONCE .ROUTE 09/10/21 17:46 09/10/21 17:46 DC Loratadine (Claritin) 10 mg DAILY PO 09/11/21 09:00 10/11/21 08:59 09/11/21 09:19 Famotidine (Pepcid) 20 mg DAILY24 PO 09/10/21 20:00 10/10/21 19:59 09/10/21 21:16 Furosemide (Lasix) 40 mg DAILY PO 09/11/21 09:00 10/11/21 08:59 09/11/21 09:23 Lamotrigine (Lamictal) 25 mg DAILY PO 09/11/21 09:00 10/11/21 08:59 09/11/21 09:20 Sertraline HCl (Zoloft) 50 mg DAILY PO 09/11/21 09:00 10/11/21 08:59 09/11/21 09:20 Trazodone HCl (Desyrel) 50 mg HS PO 09/10/21 21:00 10/10/21 20:59 09/10/21 21:16 Insulin Glargine (Lantus) 18 unit BID SQ 09/10/21 21:00 10/10/21 20:59 09/11/21 09:18 Lisinopril (Zestril) 20 mg DAILY PO 09/11/21 09:00 10/11/21 08:59 09/11/21 09:20 Potassium Chloride (Klor-Con 10) 10 meq DAILY PO 09/11/21 09:00 10/11/21 08:59 09/11/21 09:20 Rosuvastatin Calcium (Crestor) 40 mg DAILY PO 09/11/21 09:00 10/11/21 08:59 09/11/21 09:19 Insulin Human Lispro (Humalog) Humalog. Give when food is... TIDM SQ 09/11/21 08:00 10/11/21 07:59 09/11/21 18:12 Dextrose (Dextrose 50%-Water Syringe) 25 ml STAT PRN IV HYPOGLYCEMIA 09/10/21 20:00 10/10/21 19:59 Hydrochlorothiazide (Hydrochlorothiazide) 12.5 mg DAILY PO 09/11/21 09:00 10/11/21 08:59 09/11/21 09:23 Morphine Sulfate (Morphine Sulfate) 2 mg Q4H PRN IV PAIN 4 - 6 09/10/21 21:00 09/11/21 12:00 DC 09/10/21 21:18 Piperacillin Sod/ Tazobactam Sod 3.375 gm/Sodium Chloride 100 ml @ 100 mls/hr Q6H IV 09/11/21 04:00 09/11/21 12:22 DC 09/11/21 09:23 Sodium Chloride 250 ml @ ud STK-MED ONCE .ROUTE 09/10/21 21:06 09/10/21 21:07 DC Sodium Chloride 100 ml @ ud STK-MED ONCE IV 09/11/21 03:58 09/11/21 03:59 DC Clindamycin HCl (Cleocin) 300 mg QID PO 09/11/21 13:00 10/11/21 12:59 09/11/21 17:59 Acetaminophen (Tylenol) 500 mg Q6H PRN PO PAIN 1 - 3 09/11/21 12:00 10/11/21 11:59 Assessment/Plan Assessment/Plan Assessment/Plan Left lower extremity cellulitis - Received Vanc and Zosyn but have de-escalated to clindamycin at this time , Will continue to monitor and clindamycin for now, if patient spiked fever again will place the patient back on vancomycin and cefepime. Acute kidney injury, creatinine went up to one 2.1, vancomycin and Zosyn were discontinued. I will hold hydrochlorothiazide, Lasix and lisinopril today, we will keep the patient to continue to monitor kidney function and urine output. Previous history of DVTf ilter in place of left lower extremity and ultrasound was negative for DVT in that extremity. Continue Eliquis. Insulin-dependent diabetes continue Lantus dose from home of 18 units twice daily and sliding scale. Hypertension continue lisinopril/hydrochlorothiazide. Hyperlipidemia continue rosuvastatin. Depression continued Zoloft. Patient will be kept in the hospital today, because of acute kidney injury which the patient developed, also because of the fever. Plan to discharge the patient if the patient remains afebrile for 24 hours and if her kidney function improves, I am holding lisinopril, Lasix and hydrochlorothiazide today.. SHUBHAM MAHER MD Sep 12, 2021 12:34
[2021-09-12 17:11] VITALS: BP 121/64
[2021-09-12 20:36] VITALS: BP 140/63
[2021-09-12] MEDS: DESYREL PO SCH (21:04)
[2021-09-12] MEDS: PEPCID PO SCH (21:06)
[2021-09-13 00:27] VITALS: BP 99/46
[2021-09-13 04:39] VITALS: BP 92/47
[2021-09-13 04:53] LABS: BASOPHIL # 0.1 10^3/uL (0.0-0.1); BASOPHIL % 0.9 % (0.0-0.2); EOSINOPHIL # 0.3 10^3/uL (0.0-0.2); EOSINOPHIL % 3.2 % (0.0-5.0); LYMPHOCYTES # 2.41 10^3/uL1 (1.0-4.8); LYMPHOCYTES % 26.5 % (24.0-44.0); MEAN CORP HGB 29.3 pg (26-34); MONOCYTES # 0.8 10^3/uL (0.3-0.8); MONOCYTES % 8.9 % (5.0-12.0); NEUTROPHIL # 5.5 10^3/uL (1.8-7.7); NEUTROPHILS % 60.5 % (41.0-85.0); PLATELET COUNT 314 10^3/uL (150-400); RED CELL DISTRIBUTION WIDTH 13.2 % (11.5-14.5)
[2021-09-13 05:07] LABS: CALCIUM 8.6 mg/dL (8.4-10.5); CARBON DIOXIDE 29.5 mmol/L (20.0-32)
[2021-09-13 08:00] VITALS: BP 100/60
[2021-09-13] MEDS: HUMALOG SQ SCH ×3 (08:02→17:32)
[2021-09-13] MEDS: LANTUS SQ SCH ×2 (08:50→21:15)
[2021-09-13] MEDS: CRESTOR PO SCH (08:58)
[2021-09-13] MEDS: CLARITIN PO SCH (08:58)
[2021-09-13] MEDS: LAMICTAL PO SCH (08:58)
[2021-09-13] MEDS: CLEOCIN PO SCH ×4 (08:58→21:07)
[2021-09-13] MEDS: ELIQUIS PO SCH ×2 (08:59→21:07)
[2021-09-13] MEDS: TRADJENTA PO SCH (08:59)
[2021-09-13] MEDS: KLOR-CON 10 PO SCH (08:59)
[2021-09-13] MEDS: ZOLOFT PO SCH (09:00)
[2021-09-13 12:30] VITALS: BP 100/58
--- NOTE | 2021-09-13 12:34 | PRM.PN ---
Subjective Subjective Date: Sep 13, 2021 Time: 09:00 Subjective Blood pressure is on the low side with a MAP of 62. In spite of stopping blood pressure medications yesterday. Creatinine went down to 1.8. Left leg still erythematous and swollen but overall looks better. Currently patient is IV clindamycin.Blood cultures remain negative. Patient History: Cerebrovascular disorder Diabetes mellitus Hypertension No Family History of: Alzheimer's disease Asthma Chronic obstructive pulmonary disease Congestive heart failure Diabetes insipidus Parkinson's disease Review of Systems Constitutional: Fever; No: Chills Eyes: No: Vision change, Conjunctivae inflammation ENT: No: Ear pain, Nose congestion Respiratory: No: Cough, Shortness of breath, SOB with excertion, Wheezing Cardiovascular: No: Chest Pain, Palpitations Gastrointestinal: No: Nausea, Vomiting, Abdominal Pain, Diarrhea Genitourinary: No Dysuria, No Frequency Musculoskeletal: foot pain Skin: Other (redness, warmth, swelling to left calf) Neurological: No: Weakness, Numbness, Confusion Allergies: Coded Allergies: No Known Allergies (Unverified , 10/14/14) Scheduled Apixaban (Eliquis), 5 MG PO BID, (Reported) Cetirizine Hcl (Cetirizine Hcl), 1 TAB PO DAILY, (Reported) Famotidine (Famotidine), 20 MG PO DAILY24, (Reported) Furosemide (Furosemide), 1 TAB PO DAILY, (Reported) Insulin Glargine,Hum.rec.anlog (Lantus Solostar), 18 UNIT SQ BID, (Reported) Insulin Lispro (Humalog), 0 SQ PER SLIDING SCALE, (Reported) Lamotrigine (Lamotrigine), 1 TAB PO DAILY, (Reported) Lisinopril/Hydrochlorothiazide (Lisinopril-Hctz 20-12.5 Mg Tab), 1 TAB PO DAILY, (Reported) Metformin Hcl (Metformin Hcl), 1 TAB PO BID, (Reported) Potassium Chloride (Potassium Chloride), 1 CAP PO DAILY, (Reported) Rosuvastatin 40MG (Crestor 40MG), 1 TAB PO DAILY, (Reported) Sertraline Hcl (Zoloft), 1 TAB PO DAILY, (Reported) Sitagliptin Phosphate (Januvia), 1 TAB PO DAILY, (Reported) Trazodone Hcl (Trazodone Hcl), 1 TAB PO HS, (Reported) Objective Vitals and I/O Vital Sign - Last 24 Hours 09/12/21 09/12/21 09/13/21 09/13/21 17:11 20:36 00:27 01:04 Temp 98.0 98.6 97.6 Pulse 78 76 72 Resp 16 18 18 B/P (MAP) 121/64 (83) 140/63 (88) 99/46 (63) Pulse Ox 94 95 90 O2 Delivery Room Air Room Air 09/13/21 09/13/21 04:39 07:30 Temp 98.0 98.7 Pulse 72 72 Resp 18 16 B/P (MAP) 92/47 (62) Pulse Ox 92 90 General: Alert, Oriented X3, Cooperative, No acute distress HEENT: Atraumatic, PERRLA, EOMI Lungs: Clear to auscultation, Normal air movement Heart: Regular rate, No murmurs Abdomen: Normal bowel sounds, Soft, No tenderness Extremities: Other (Erythema swelling left leg. Mild erythema to posterior and lower lateral calf. no open wound, no abscess appreciated.) Skin: Other (Redness left leg) Neuro: Normal speech, Sensation intact Psych/Mental Status: Mental status NL, Mood NL All Results(Lab/Rad) Laboratory Tests Test 09/10/21 20:46 09/11/21 05:17 09/11/21 12:41 09/11/21 16:39 Bedside Glucose 215 204 178 White Blood Count 10.5 10^3/uL Red Blood Count 3.00 10^6/uL Hemoglobin 8.8 g/dL Hematocrit 27.7 % Mean Corpuscular Volume 92.3 fL Mean Corpuscular Hemoglobin 29.3 pg Mean Corpuscular Hemoglobin Concent 31.8 g/dL Red Cell Distribution Width 13.7 % Platelet Count 260 10^3/uL Mean Platelet Volume 9.6 fL Neutrophils (%) (Auto) 71.8 % Lymphocytes (%) (Auto) 16.0 % Monocytes (%) (Auto) 10.1 % Neutrophils # (Auto) 7.6 10^3/uL Lymphocytes # (Auto) 1.68 10^3/uL1 Monocytes # (Auto) 1.1 10^3/uL Absolute Immature Granulocyte (auto 0.01 10^3 u/L Absolute Eosinophils (auto) 0.2 10^3/uL Immature Granulocytes % 0.10 % Eosinophils % 1.7 % Basophils % 0.4 % Basophils # 0.0 10^3/uL Sodium Level 136 mmol/L Potassium Level 4.0 mmol/L Chloride Level 101.0 mmol/L Carbon Dioxide Level 27.6 mmol/L Anion Gap 11.4 Blood Urea Nitrogen 39 mg/dL Creatinine 1.91 mg/dL Estimated GFR () 32.7 Est GFR (CKD-EPI)(Non-Afr [place]ian) 27.0 BUN/Creatinine Ratio 20.0 Glucose Level 185 mg/dL Calcium Level 8.5 mg/dL Total Bilirubin 0.3 mg/dL Aspartate Amino Transf (AST/SGOT) 43 U/L Alanine Aminotransferase (ALT/SGPT) 22 U/L Alkaline Phosphatase 54 U/L Total Protein 6.9 g/dL Albumin 2.5 g/dL Globulin 4.4 Albumin/Globulin Ratio 0.568 Current Medications Medications (Trade) Dose Ordered Sig/Orlin Route PRN Reason Start Time Stop Time Status Last Admin Dose Admin Vancomycin HCl 1 gm/Sodium Chloride 250 ml @ 175 mls/hr STAT STAT IV 09/10/21 16:21 09/10/21 17:46 DC 09/10/21 21:00 Piperacillin Sod/ Tazobactam Sod 3.375 gm/Sodium Chloride 100 ml @ 100 mls/hr OT STAT IV 09/10/21 16:21 09/10/21 17:20 DC 09/10/21 16:48 Sodium Chloride 100 ml @ ud STK-MED ONCE IV 09/10/21 16:31 09/10/21 16:32 DC Vancomycin HCl 1 ml @ ud STK-MED ONCE .ROUTE 09/10/21 17:46 09/10/21 17:46 DC Sodium Chloride 250 ml @ STK-MED ONCE .ROUTE 09/10/21 17:46 09/10/21 17:46 DC Loratadine (Claritin) 10 mg DAILY PO 09/11/21 09:00 10/11/21 08:59 09/11/21 09:19 Famotidine (Pepcid) 20 mg DAILY24 PO 09/10/21 20:00 10/10/21 19:59 09/10/21 21:16 Furosemide (Lasix) 40 mg DAILY PO 09/11/21 09:00 10/11/21 08:59 09/11/21 09:23 Lamotrigine (Lamictal) 25 mg DAILY PO 09/11/21 09:00 10/11/21 08:59 09/11/21 09:20 Sertraline HCl (Zoloft) 50 mg DAILY PO 09/11/21 09:00 10/11/21 08:59 09/11/21 09:20 Trazodone HCl (Desyrel) 50 mg HS PO 09/10/21 21:00 10/10/21 20:59 09/10/21 21:16 Insulin Glargine (Lantus) 18 unit BID SQ 09/10/21 21:00 10/10/21 20:59 09/11/21 09:18 Lisinopril (Zestril) 20 mg DAILY PO 09/11/21 09:00 10/11/21 08:59 09/11/21 09:20 Potassium Chloride (Klor-Con 10) 10 meq DAILY PO 09/11/21 09:00 10/11/21 08:59 09/11/21 09:20 Rosuvastatin Calcium (Crestor) 40 mg DAILY PO 09/11/21 09:00 10/11/21 08:59 09/11/21 09:19 Insulin Human Lispro (Humalog) Humalog. Give when food is... TIDM SQ 09/11/21 08:00 10/11/21 07:59 09/11/21 18:12 Dextrose (Dextrose 50%-Water Syringe) 25 ml STAT PRN IV HYPOGLYCEMIA 09/10/21 20:00 10/10/21 19:59 Hydrochlorothiazide (Hydrochlorothiazide) 12.5 mg DAILY PO 09/11/21 09:00 10/11/21 08:59 09/11/21 09:23 Morphine Sulfate (Morphine Sulfate) 2 mg Q4H PRN IV PAIN 4 - 6 09/10/21 21:00 09/11/21 12:00 DC 09/10/21 21:18 Piperacillin Sod/ Tazobactam Sod 3.375 gm/Sodium Chloride 100 ml @ 100 mls/hr Q6H IV 09/11/21 04:00 09/11/21 12:22 DC 09/11/21 09:23 Sodium Chloride 250 ml @ STK-MED ONCE .ROUTE 09/10/21 21:06 09/10/21 21:07 DC Sodium Chloride 100 ml @ ud STK-MED ONCE IV 09/11/21 03:58 09/11/21 03:59 DC Clindamycin HCl (Cleocin) 300 mg QID PO 09/11/21 13:00 10/11/21 12:59 09/11/21 17:59 Acetaminophen (Tylenol) 500 mg Q6H PRN PO PAIN 1 - 3 09/11/21 12:00 10/11/21 11:59 Assessment/Plan Assessment/Plan Assessment/Plan Left lower extremity cellulitis - Received Vanc and Zosyn but have de-escalated to clindamycin at this time , Will continue to monitor and clindamycin for now, if patient spiked fever again will place the patient back on vancomycin and cefepime. Acute kidney injury, creatinine went up to one 2.1, vancomycin and Zosyn were discontinued. I will hold hydrochlorothiazide, Lasix and lisinopril today, we will keep the patient to continue to monitor kidney function and urine output. Previous history of DVTf ilter in place of left lower extremity and ultrasound was negative for DVT in that extremity. Continue Eliquis. Insulin-dependent diabetes continue Lantus dose from home of 18 units twice daily and sliding scale. Hypertension continue lisinopril/hydrochlorothiazide.In spite of holding the lisinopril, hydrochlorothiazide blood pressure is low??. Hyperlipidemia continue rosuvastatin. Depression continued Zoloft. Patient is hypotensive inspite of stopping lisinopril, hydrochlorothiazide, Lasix. Otherwise the patient doing okay but I am concerned that the blood pressure is low. Will keep the patient today and continue to monitor closely. Blood cultures negative to date. Continue IV clindamycin. SHUBHAM MAHER MD Sep 13, 2021 12:34
[2021-09-13 17:30] VITALS: BP 99/56
[2021-09-13] MEDS: PEPCID PO SCH (21:07)
[2021-09-13] MEDS: DESYREL PO SCH (21:07)
[2021-09-13 23:53] VITALS: BP 128/56
[2021-09-14 04:59] LABS: BASOPHIL # 0.1 10^3/uL (0.0-0.1); BASOPHIL % 0.8 % (0.0-0.2); EOSINOPHIL # 0.2 10^3/uL (0.0-0.2); EOSINOPHIL % 2.4 % (0.0-5.0); LYMPHOCYTES # 2.72 10^3/uL1 (1.0-4.8); LYMPHOCYTES % 27.3 % (24.0-44.0); MEAN CORP HGB 29.1 pg (26-34); MONOCYTES # 0.8 10^3/uL (0.3-0.8); MONOCYTES % 7.7 % (5.0-12.0); NEUTROPHIL # 6.1 10^3/uL (1.8-7.7); NEUTROPHILS % 61.8 % (41.0-85.0); PLATELET COUNT 356 10^3/uL (150-400); RED CELL DISTRIBUTION WIDTH 13.2 % (11.5-14.5)
[2021-09-14 05:04] VITALS: BP 102/49
[2021-09-14 05:09] LABS: CALCIUM 8.9 mg/dL (8.4-10.5); CARBON DIOXIDE 27.9 mmol/L (20.0-32)
[2021-09-14] MEDS: HUMALOG SQ SCH (07:15)
[2021-09-14 08:21] VITALS: BP 111/51
[2021-09-14] MEDS: CLARITIN PO SCH (09:10)
[2021-09-14] MEDS: CLEOCIN PO SCH (09:10)
[2021-09-14] MEDS: ELIQUIS PO SCH (09:10)
[2021-09-14] MEDS: CRESTOR PO SCH (09:10)
[2021-09-14] MEDS: TRADJENTA PO SCH (09:11)
[2021-09-14] MEDS: LAMICTAL PO SCH (09:11)
[2021-09-14] MEDS: KLOR-CON 10 PO SCH (09:11)
[2021-09-14] MEDS: LANTUS SQ SCH (09:11)
[2021-09-14] MEDS: ZOLOFT PO SCH (09:11)
[2021-09-14] MEDS ORDERED: CLIN150C2 PO (10:32)
--- NOTE | 2021-09-14 10:39 | PRM.DC ---
Discharge Summary Date of Discharge: Sep 14, 2021 Time of Request to Discharge: 12:00 Hospital Course 56-year-old female with a past medical history of hypertension, insulin-depend ent diabetes, depression, HLD, DVT in left leg, CAD who presented to the emergency room today with swelling and redness of left lower extremity. She reported the symptoms started 48 hours Prior to arrival. Symptoms associated with warmth. She did report that her cat at home scratched her around the same time of onset of symptoms but that the cat scratch was in the thigh area not in the calf. She does have a history of a filter in that leg after having a blood clot in that leg in several years ago. She denied any chest pain or shortness of breath. She had a negative ultrasound of that leg with no DVT noted. Her WBC was slightly elevated at 11.9. Her D-dimer was elevated at 1.43. Her pro-Thaddeus was elevated at 5.61. Creatinine slightly elevated at 1.55. SARS-CoV Ag negative. The emergency room physician requested to admit the patient for IV antibiotics for cellulitis. She was started on Vanco and Zosyn. Patient creatinine went up to 2.1. Also blood pressure has been on the low side. Blood pressure medications were held, vancomycin and Zosyn were discontinued and patient was placed on clindamycin. Patient was kept in the h ospital to monitor her kidney function and because of the low blood pressure off her blood pressure medications. Today patient is feeling better, left leg looks better, with reduced swelling and redness. Kidney function back to her baseline on admission which was 1.5. Blood pressure remains on the low side but today better than it was the last 2 days. Current blood pressure is 110/60. Patient still off her blood pressure medications. Patient would like to go home. Condition on discharge stable. Diet heart healthy/diabetic. Activity as tolerated. Follow-up with primary care physician. Prescription for oral clindamycin to be given to the patient. Follow-up with her PCP as soon as possible. Patient report back to the emergency room if she started having fever chills worsening leg swelling or redness. Patient also was advised to continue to monitor her blood pressure daily if her blood pressure start going up then she Should contact her primary care physician to be restarted back on her blood pressure medicine. Patient History: Cerebrovascular disorder Diabetes mellitus Hypertension No Family History of: Alzheimer's disease Asthma Chronic obstructive pulmonary disease Congestive heart failure Diabetes insipidus Parkinson's disease Exam/Vitals Blood pressure 110/60, heart rate 80, respiratory rate 14, temperature 98. General: Alert, Oriented X3 HEENT: Atraumatic, PERRLA Neck: Supple, No JVD Lungs: Clear to auscultation, Normal air movement Heart: Regular rate, Normal S1, Normal S2 Abdomen: Normal bowel sounds, Soft, No tenderness Extremities: Other (Reduce swelling and redness of the left leg) Skin: Other (Reduce redness of the left leg) Neuro: Normal speech, Normal tone Psych/Mental Status: Mental status NL, Mood NL Scheduled Apixaban (Eliquis), 5 MG PO BID, (Reported) Cetirizine Hcl (Cetirizine Hcl), 1 TAB PO DAILY, (Reported) Clindamycin Hcl (Cleocin Hcl), 300 MG PO QID Famotidine (Famotidine), 20 MG PO DAILY24, (Reported) Furosemide (Furosemide), 1 TAB PO DAILY, (Reported) Insulin Glargine,Hum.rec.anlog (Lantus Solostar), 18 UNIT SQ BID, (Reported) Insulin Lispro (Humalog), 0 SQ PER SLIDING SCALE, (Reported) Lamotrigine (Lamotrigine), 1 TAB PO DAILY, (Reported) Lisinopril/Hydrochlorothiazide (Lisinopril-Hctz 20-12.5 Mg Tab), 1 TAB PO DAILY, (Reported) Metformin Hcl (Metformin Hcl), 1 TAB PO BID, (Reported) Potassium Chloride (Potassium Chloride), 1 CAP PO DAILY, (Reported) Rosuvastatin 40MG (Crestor 40MG), 1 TAB PO DAILY, (Reported) Sertraline Hcl (Zoloft), 1 TAB PO DAILY, (Reported) Sitagliptin Phosphate (Januvia), 1 TAB PO DAILY, (Reported) Trazodone Hcl (Trazodone Hcl), 1 TAB PO HS, (Reported) Sepsis Evaluation @ Discharge Vital Sign - Last 24 Hours 09/10/21 09/11/21 09/11/21 09/11/21 19:47 00:18 03:56 04:26 Temp 98.7 98.5 100.7 Pulse 76 81 85 Resp 18 18 18 B/P (MAP) 125/54 (77) 101/47 (65) 138/57 (84) Pulse Ox 98 91 97 O2 Delivery Room Air Room Air Room Air Room Air 09/11/21 09/11/21 09/11/21 09/11/21 08:23 09:20 09:23 09:23 Temp 99.9 Pulse 75 Resp 18 B/P (MAP) 101/49 (66) 101/49 101/49 101/49 Pulse Ox 93 09/11/21 09/11/21 09/11/21 10:00 13:38 15:42 Temp 98.2 98.5 Pulse 63 67 Resp 17 18 B/P (MAP) 119/56 (77) 119/56 (77) Pulse Ox 93 94 O2 Delivery Room Air Laboratory Tests Test 09/10/21 14:36 09/10/21 20:46 09/11/21 05:17 09/11/21 12:41 White Blood Count 11.9 10^3/uL 10.5 10^3/uL Red Blood Count 3.42 10^6/uL 3.00 10^6/uL Hemoglobin 9.8 g/dL 8.8 g/dL Hematocrit 31.2 % 27.7 % Mean Corpuscular Volume 91.2 fL 92.3 fL Mean Corpuscular Hemoglobin 28.7 pg 29.3 pg Mean Corpuscular Hemoglobin Concent 31.4 g/dL 31.8 g/dL Red Cell Distribution Width 13.5 % 13.7 % Platelet Count 285 10^3/uL 260 10^3/uL Mean Platelet Volume 9.7 fL 9.6 fL Neutrophils (%) (Auto) 79.3 % 71.8 % Lymphocytes (%) (Auto) 11.3 % 16.0 % Monocytes (%) (Auto) 8.6 % 10.1 % Neutrophils # (Auto) 9.4 10^3/uL 7.6 10^3/uL Lymphocytes # (Auto) 1.34 10^3/uL1 1.68 10^3/uL1 Monocytes # (Auto) 1.0 10^3/uL 1.1 10^3/uL Absolute Immature Granulocyte (auto 0.02 10^3 u/L 0.01 10^3 u/L Absolute Eosinophils (auto) 0.0 10^3/uL 0.2 10^3/uL Immature Granulocytes % 0.20 % 0.10 % Eosinophils % 0.3 % 1.7 % Basophils % 0.3 % 0.4 % Basophils # 0.0 10^3/uL 0.0 10^3/uL Prothrombin Time 10.8 SEC Prothrombin Time INR (Non-Therap) 1.0 Activated Partial Thromboplast Time 27.1 SEC D-Dimer 1.43 mg/L Sodium Level 134 mmol/L 136 mmol/L Potassium Level 3.9 mmol/L 4.0 mmol/L Chloride Level 98.0 mmol/L 101.0 mmol/L Carbon Dioxide Level 27.4 mmol/L 27.6 mmol/L Anion Gap 12.5 11.4 Blood Urea Nitrogen 38 mg/dL 39 mg/dL Creatinine 1.55 mg/dL 1.91 mg/dL Estimated GFR () 41.6 32.7 Est GFR (CKD-EPI)(Non-Afr Samoan) 34.3 27.0 BUN/Creatinine Ratio 24.0 20.0 Glucose Level 200 mg/dL 185 mg/dL Lactic Acid Level 1.6 mmol/L Calcium Level 8.9 mg/dL 8.5 mg/dL Total Bilirubin 0.4 mg/dL 0.3 mg/dL Aspartate Amino Transf (AST/SGOT) 58 U/L 43 U/L Alanine Aminotransferase (ALT/SGPT) 22 U/L 22 U/L Alkaline Phosphatase 48 U/L 54 U/L Total Protein 7.7 g/dL 6.9 g/dL Albumin 2.9 g/dL 2.5 g/dL Globulin 4.8 4.4 Albumin/Globulin Ratio 0.604 0.568 Procalcitonin 5.61 ng/mL SARS-CoV-2 Antigen (Rapid) NEGATIVE Bedside Glucose 215 204 Test 09/11/21 16:39 Bedside Glucose 178 Current Medications Medications (Trade) Dose Ordered Sig/Orlin PRN Reason Start Time Stop Time Status Last Admin Acetaminophen (Tylenol) 500 mg Q6H PRN PAIN 1 - 3 09/11/21 12:00 10/11/21 11:59 Clindamycin HCl (Cleocin) 300 mg QID 09/11/21 13:00 10/11/21 12:59 09/11/21 17:59 Dextrose (Dextrose 50%-Water Syringe) 25 ml STAT PRN HYPOGLYCEMIA 09/10/21 20:00 10/10/21 19:59 Famotidine (Pepcid) 20 mg DAILY24 09/10/21 20:00 10/10/21 19:59 09/10/21 21:16 Furosemide (Lasix) 40 mg DAILY 09/11/21 09:00 10/11/21 08:59 09/11/21 09:23 Hydrochlorothiazide (Hydrochlorothiazide) 12.5 mg DAILY 09/11/21 09:00 10/11/21 08:59 09/11/21 09:23 Insulin Glargine (Lantus) 18 unit BID 09/10/21 21:00 10/10/21 20:59 09/11/21 09:18 Insulin Human Lispro (Humalog) Humalog. Give when food is... TIDM 09/11/21 08:00 10/11/21 07:59 09/11/21 18:12 Lamotrigine (Lamictal) 25 mg DAILY 09/11/21 09:00 10/11/21 08:59 09/11/21 09:20 Lisinopril (Zestril) 20 mg DAILY 09/11/21 09:00 10/11/21 08:59 09/11/21 09:20 Loratadine (Claritin) 10 mg DAILY 09/11/21 09:00 10/11/21 08:59 09/11/21 09:19 Potassium Chloride (Klor-Con 10) 10 meq DAILY 09/11/21 09:00 10/11/21 08:59 09/11/21 09:20 Rosuvastatin Calcium (Crestor) 40 mg DAILY 09/11/21 09:00 10/11/21 08:59 09/11/21 09:19 Sertraline HCl (Zoloft) 50 mg DAILY 09/11/21 09:00 10/11/21 08:59 09/11/21 09:20 Trazodone HCl (Desyrel) 50 mg HS 09/10/21 21:00 10/10/21 20:59 09/10/21 21:16 Plan Discharge Date: Sep 14, 2021 Discharge Disposition: Stable Plan Left lower extremity cellulitis - Improved, patient to continue oral antibiotic for 5 days. Acute kidney injury, creatinine went up to one 2.1, vancomycin and Zosyn were discontinued. Today creatinine went down to 1.5. hydrochlorothiazide, Lasix and lisinopril Were held. Patient was advised to continue to monitor blood pressure daily and to follow with a primary care physician as soon as possible if her blood pressures start going up. Previous history of DVTf ilter in place of left lower extremity and ultrasound was negative for DVT in that extremity. Continue Eliquis. Insulin-dependent diabetes continue Lantus dose from home of 18 units twice daily and sliding scale. HypertensionWe will continue to hold lisinopril/hydrochlorothiazidePatient was advised to continue to monitor blood pressure daily and to Contact Primary care physician if her blood pressures Isgoing up. Hyperlipidemia continue rosuvastatin. 56-year-old female with a past medical history of hypertension, insulin- dependent diabetes, depression, HLD, DVT in left leg, CAD who presented to the emergency room today with swelling and redness of left lower extremity. She reported the symptoms started 48 hours Prior to arrival. Symptoms associated with warmth. She did report that her cat at home scratched her around the same time of onset of symptoms but that the cat scratch was in the thigh area not in the calf. She does have a history of a filter in that leg after having a blood clot in that leg in several years ago. She denied any chest pain or shortness of breath. She had a negative ultrasound of that leg with no DVT noted. Her WBC was slightly elevated at 11.9. Her D-dimer was elevated at 1.43. Her pro-Thaddeus was elevated at 5.61. Creatinine slightly elevated at 1.55. SARS-CoV Ag negative. The emergency room physician requested to admit the patient for IV antibiotics for cellulitis. She was started on Vanco and Zosyn. Patient creatinine went up to 2.1. Also blood pressure has been on the low side. Blood pressure medications were held, vancomycin and Zosyn were discontinued and patient was placed on clindamycin. Patient was kept in the hospital to monitor her kidney function and because of the low blood pressure off her blood pressure medications. Today patient is feeling better, left leg looks better, with reduced swelling and redness. Kidney function back to her baseline on admission which was 1.5. Blood pressure remains on the low side but today better than it was the last 2 days. Current blood pressure is 110/60. Patient still off her blood pressure medications. Patient would like to go home. Condition on discharge stable. Diet heart healthy/diabetic. Activity as tolerated. Follow-up with primary care physician. Prescription for oral clindamycin to be given to the patient. Follow-up with her PCP as soon as possible. Patient report back to the emergency room if she started having fever chills worsening leg swelling or redness. Patient also was advised to continue to monitor her blood pressure daily if her blood pressure start going up then she Should contact her primary care physician to be restarted back on her blood pressure medicine. SHUBHAM MAHER MD Sep 14, 2021 10:39
--- NOTE | 2021-09-14 11:54 | NUR ---
PT HAS NO WOUND TO LEFT LEG, NO REDNESS OR SWELLING, OR WARMTH NOTED.
--- NOTE | 2021-09-14 12:26 | NUR ---
DISCHARGE DISCHARGE INSTRUCTIONS GIVEN TO PT BOTH VERBALLY AND WRITTEN AT THIS TIME. PT EDUCATED OVER IMPORTANCE OF FOLLOW UP APPT WITH PCP TO DISCUSS CHANGING OF MEDICATIONS THAT DR. JALLOH WANTS PATIENT TO DISCONTINUE DUE TO LOWERED BLOOD PRESSURES, PT EDUCATED OVER IMPORTANCE OF NEW RX FOR CLEOCIN, AND TO TAKE FULL DOSE, PT VERBALIZED UNDERSTANDING WITH NO QUESTIONS OR CONCERNS NOTED. IV REMOVED VIA ASEPTIC TECHNIQUE, CATH TIP STILL INTACT, PT TOLERATED WELL. PT WHEELED OFF OF UNIT VIA WHEELCHAIR TO PRIVATE AUTO ACCOMPANIED BY PT'S FAMILY. NO S/S OF ACUTE DISTRESS NOTED. RELINQUISHED CARE OF PT.
[2021-09-14 12:28] VITALS: BP 111/51
== END 2021-09-14 12:26 | disposition home or self-care (01) | DRG 383 ==
LOC: ER 14:16 → EDBD 14:16 → MS 16:21 → INTOOBSV 16:21 → OBSVTOIN 16:21 → UNDOADMOB 16:21 → MS 09-11 08:38
PROVIDERS: ADMIT Student in an Organized Health Care Education/Training Program; ATTEND Student in an Organized Health Care Education/Training Program
DX: L03.116 Cellulitis of left lower limb (principal); N17.9 Acute kidney failure, unspecified; I95.9 Hypotension, unspecified; I11.0 Hypertensive heart disease with heart failure; E78.5 Hyperlipidemia, unspecified; F32.A Depression, unspecified; Z20.822 Contact with and (suspected) exposure to COVID-19; I25.10 Atherosclerotic heart disease of native coronary artery without angina pectoris; W55.03XA Scratched by cat, initial encounter; Z79.01 Long term (current) use of anticoagulants; Z79.4 Long term (current) use of insulin; Z86.718 Personal history of other venous thrombosis and embolism
CPT/HCPCS: 36415; 80053; 82948; 83605; 84145; 85025; 85379; 85610; 85730; 87040; 87426; 99285; G0378; J1815; J2543; J3370; J3490; J7050; 93971